=== PATIENT | male | born 1955 | race Caucasian/White ===

== ENCOUNTER 2019-08-21 12:45 | Emergency (ER) | payer MEDICARE, SELFPAY ==
[2019-08-21 12:59] VITALS: BP 124/80; PULSE 92; RESP 18; TEMP 36.4; O2SAT 94; BMI 24.3
--- NOTE | 2019-08-21 13:35 | XRR_ITS ---
PROCEDURE INFORMATION: Exam: XR Chest, 1 View Exam date and time: 08/21/2019 1:36 PM Age: 64 years old Clinical indication: Cough; Prior surgery; Surgery date: 6+ months; Surgery type: Cabg; Additional info: Dyspnea/cough TECHNIQUE: Imaging protocol: XR of the chest Views: 1 view. COMPARISON: CR Chest 2 views* [id number] 09/15/2017 1:32 PM FINDINGS: Lungs: There are patchy opacities in the mid to lower left lung field. Pleural space: Unremarkable. No pleural effusion. No pneumothorax. Heart/Mediastinum: Cardiomegaly. Bones/joints: There are post sternotomy changes. XR/XR chest 1V portable [id number] IMPRESSION: Nonspecific patchy opacities the mid to lower left lung field are nonspecific. Differential includes pneumonia and scar tissue. Underlying neoplasm cannot be excluded.
--- NOTE | 2019-08-21 13:35 | CTR_ITS ---
PROCEDURE INFORMATION: Exam: CT Abdomen And Pelvis With Contrast Exam date and time: 08/21/2019 1:44 PM Age: 64 years old Clinical indication: Abdominal pain; Localized; Right lower quadrant (rlq); Prior surgery; Surgery date: 6+ months; Surgery type: Partial nephrectomy; Patient HX: C/O rlq abd pain w n/v TECHNIQUE: Imaging protocol: Computed tomography of the abdomen and pelvis with intravenous contrast. Radiation optimization: All CT scans at this facility use at least one of these dose optimization techniques: automated exposure control; mA and/or kV adjustment per patient size (includes targeted exams where dose is matched to clinical indication); or iterative reconstruction. Contrast material: OMNI 300; Contrast volume: 95 ml; Contrast route: 20G; COMPARISON: CTA Chest w Abd/Pel w* 02/24/2017 2:53 AM RADIATION DOSE METRICS: Total DLP: 840.29 mGy-cm FINDINGS: Heart: Moderate-sized pericardial effusion. This is similar to the prior CT scan. Lungs: Streaky opacities at left lung base are most consistent with scarring and/or atelectasis. Liver: Lobulated liver consistent with cirrhosis. Multiple hepatic calcified granulomas. Gallbladder and bile ducts: Cholelithiasis. Gallbladder is distended. Pancreas: Normal. No ductal dilation. Spleen: Spleen is enlarged measuring 15.5 cm. Adrenals: Normal. No mass. Kidneys and ureters: There is a 6 mm calculus the right ureter.Mild to moderate hydronephrosis/hydroureter and associated inflammatory stranding. Right urothelium enhances prominently raising concern for ascending urinary tract infection. There are multiple cysts in the kidneys with benign features the larger of which measures 13 mm in the upper pole of the right kidney. Follow-up is not necessary. wedge-shaped cortical thinning in the inferior pole the right kidney is consistent with chronic ischemic or infectious insult. There is contour abnormality at the lateral aspect of the left kidney the with faint peripheral calcifications, consistent with scarring. This is likely related to the patient's history of prior partial nephrectomy surgery. Stomach and bowel: Unremarkable. No obstruction. No mucosal thickening. Appendix: No evidence of appendicitis. Intraperitoneal space: There is a small amount of free intraperitoneal fluid in the pelvis. Vasculature: There is ill-defined low density within the right common iliac, external iliac, and femoral veins. Lymph nodes: Unremarkable. No enlarged lymph nodes. Bladder: Unremarkable as visualized. Reproductive: Unremarkable as visualized. Bones/joints: Unremarkable. No acute fracture. Soft tissues: Unremarkable. Other findings: Moderate stool burden. CT/CT abdomen pelvis w con* [id number] IMPRESSION: 1. There is a 6 mm calculus in the distal right ureter with obstructive changes as described above. Right ureteral urothelium enhances prominently raising concern for ascending urinary tract infection. 2. Cirrhotic liver with splenomegaly. There is a small amount of free intraperitoneal fluid/ascites in the pelvis. 3. There is ill-defined low density within the right common iliac, external iliac, and femoral veins. Findings raise concern for thrombosis. Deep venous ultrasound recommended for further evaluation. COMMENTS: Consistent with the [employer]'s Incidental Findings Committee white paper (J Am Macho [employer]iol 2018): Any incidental cystic renal lesion classified in this report as too small to characterize or simple appearing is likely a benign cyst. No follow-up imaging is recommended for these lesions per consensus recommendations based on imaging criteria. Radiation Dose CTDIVOL = (mGy): DLP = 840.29 (mGy-cm)
--- NOTE | 2019-08-21 13:36 | ED_ITS ---
HPI - Abdominal Pain General: Chief Complaint: Abdominal Pain Stated Complaint: n/v abd pain Time Seen by Provider: 08/21/19 13:26 History of Present Illness: HPI narrative: 64-year-old male comes in complaining of 2 to 3 days of nausea vomiting right lower quadrant abdominal pain. Pain initially began right lower quadrant is pretty much stayed in the same place it is somewhat intermittent is not affected by urination. He has multiple episodes of vomiting per day he denies any hematochezia melena hematemesis or coffee-ground emesis. His last bowel movement was 4 days ago he said pretty much no appetite at all. He denies any association with urination denies any hematuria. He has a chronic cough that remains unchanged she denies any fever sweats or chills denies any UTI symptoms dysuria urgency or frequency no facial pain pressure difficulty with speech swallowing etc. He is not previously had an appendectomy. MD elicited complaint: abdominal pain Pertinent past history: constipation Onset (ago): day(s) (2) Pain Consistency: intermittent Location: RLQ Severity: moderate Quality: cramping Radiation: none Migration to: no migration Exacerbating factors: eating Relieving factors: vomiting and other (Not eating) Associated Symptoms: Reports anorexia, bloating, change in bowel habits (No bowel movement x4 days), constipation, GI cramping, dyspepsia, nausea, poor appetite and vomiting; Denies coffee ground emesis, diarrhea, dysuria, fever(s), hematochezia, hematuria, hematemesis, loose stools and melena Review of Systems Const: Denies: fever(s) ENMT: Denies: throat pain, ear or mastoid pain, nasal discharge or nasal congestion Card: Denies: chest pain, edema, dyspnea on exertion or orthopnea Resp: Denies: dyspnea, productive cough or non-productive cough GI: Reports: nausea, vomiting, constipation, bloating, GI cramping and change in bowel habits (No bowel movement x4 days); Denies: hematemesis, coffee ground emesis, diarrhea, hematochezia or melena : Denies: dysuria or hematuria Skin/Breast: Denies: rash or pruritus PFSH ED PFSH: Medical History (Updated 08/21/19 @ 15:12 by Jaime Saavedra DO) Coronary artery disease Diabetes mellitus Hypertension Lipidemia Renal cyst Status post surgical excision Surgical History (Updated 08/21/19 @ 13:41 by aJime Saavedra DO) History of coronary artery bypass graft S/P tonsillectomy and adenoidectomy Social History Smoking and tobacco status: never smoked Physical Exam Const: COMMON NORMALS: no acute distress GENERAL APPEARANCE: cooperative and comfortable ORIENTATION/CONSCIOUSNESS: Yes awake, Yes oriented to person, Yes oriented to place and Yes oriented to time HENMT: COMMON NORMALS: normocephalic, atraumatic, hearing grossly normal bilaterally, external ears normal, EAC's normal, TM's normal bilaterally, Normal nasal mucous membranes and turbinates present, moist oral mucous membranes and oropharynx normal HEAD & SCALP: normocephalic and atraumatic NOSE: Normal nasal mucous membranes and turbinates present EXTERNAL EAR: Yes external ears normal EXTERNAL AUDITORY CANAL: EAC's normal TYMPANIC MEMBRANE: TM's normal bilaterally Eye: COMMON NORMALS: Equal, round and reactive pupils present, EOMs intact bilaterally, conjunctivae normal and no scleral icterus CONJUNCTIVA: Yes conjunctivae normal PUPIL: Yes Equal, round and reactive pupils present Neck/C-Spine: COMMON NORMALS: full ROM, no lymphadenopathy, supple and no JVD Lymph: LYMPHATIC: no lymphadenopathy noted and no lymphedema noted Resp: COMMON NORMALS: normal respiratory effort, No retractions, No use of accessory muscles and clear to auscultation bilaterally AUSCULTATION: clear to auscultation bilaterally Cardio: COMMON NORMALS: no JVD, regular rate, regular rhythm and No murmurs present (Cardio) RATE: regular rate RHYTHM: regular rhythm GI: COMMON NORMALS: Soft to palpation and No hepatosplenomegaly present AUSCULTATION: Yes Hypoactive bowel sounds present PALPATION: Yes Soft to palpation, Yes Tenderness to palpation present (GI) Details: RLQ, No Guarding due to palpation present (GI), Yes No hepatosplenomegaly present, No Hernia present and Yes Rebound tenderness present Extremity: COMMON NORMALS: normal to inspection, capillary refill normal, no clubbing, cyanosis or edema, no calf tenderness and no pedal edema Neuro: SENSORIUM/ORIENTATION: Yes oriented to person, Yes oriented to place and Yes oriented to time Skin: COMMON NORMALS: no rashes or lesions noted GENERAL SKIN EXAM: no rashes or lesions noted Course Vital Signs: Vital signs: Vital Signs Temperature 97.5 F L 08/21/19 12:59 Pulse Rate 77 08/21/19 15:37 Respiratory Rate 17 08/21/19 15:37 Blood Pressure 164/97 08/21/19 15:37 Pulse Oximetry 94 08/21/19 15:37 MDM - Abdominal Pain MDM Narrative: Medical decision making narrative: Reviewed the findings with the patient. Will go ahead and discharge home with hydrocodone tamsulosin and Zofran. There is signs of a little bit of infection will start on Cipro have him follow-up with Dr. Suazo in the next days strain urine for stone if has worsening or change symptoms develops fever return to the emergency room Lab Data: Labs: Lab Results 08/21/19 08/21/19 08/21/19 Range/Units 13:35 13:35 13:35 WBC 5.5 (4.0-10.0) 10^3/ uL RBC 5.95 H (4.1-5.3) 10^6/u L Hgb 17.1 H (11.7-16.6) g/dL Hct 50.8 (42.0-52.0) % MCV 85.4 (80-94) fL MCH 28.7 (28.0-34.0) pg MCHC 33.7 (30.0-36.0) g/dL RDW 12.6 (12.1-15.1) % Plt Count 121 L (130-400) 10^3/c mm MPV 10.1 (7.4-10.4) fL Neut % (Auto) 68.5 % Lymph % (Auto) 22.0 % [place] % (Auto) 7.4 % Eos % (Auto) 1.5 % Baso % (Auto) 0.2 % Neut # (Auto) 3.8 (1.8-7.7) 10^3/u L Lymph # (Auto) 1.2 (0.8-4.8) 10^3/u L [place] # (Auto) 0.4 (0.2-0.9) 10^3/u L Eos # (Auto) 0.1 (0.0-0.8) 10^3/u L Baso # (Auto) 0.0 (0.0-0.1) 10^3/u L Nucleated RBC % (a uto) 0 % Nucleated RBCs # 0.0 /100WBC Sodium 133 L (136-145) mmol/L Potassium 4.2 (3.5-5.1) mmol/L Chloride 93 L (98-107) mmol/L Carbon Dioxide 24 (22-29) mmol/L Anion Gap 20.2 H (5-19) BUN 38 H (8-23) mg/dL Creatinine 1.0 (0.7-1.2) mg/dL GFR Calculation 74.8 L (90-130) mL/min Glucose 283 H (65-115) mg/dL Calculated Osmolal ity 284 L (285-295) mOsm/k g Lactate 1.8 (0.5-2.2) mmol/L Calcium 10.2 (8.5-10.5) mg/dL Total Bilirubin 1.7 H (0.15-1.2) mg/dL AST 24 (0-40) U/L ALT 30 (0-41) U/L Alkaline Phosphata se 74 (40-130) IU/L Total Protein 8.3 (6.6-8.7) g/dL Albumin 4.8 (3.5-5.2) g/dL Globulin 3.5 (1.3-4.6) g/dL Lipase 15 (13-60) U/L Urine Color (Yellow) Urine Appearance (CLEAR) Urine pH (5-7) Ur Specific Gravit y (1.005-1.030) Urine Protein (Negative) Urine Glucose (UA) (Normal) Urine Ketones (Negative) Urine Blood (Negative) Urine Nitrate (Negative) Urine Bilirubin (NEGATIVE) Urine Urobilinogen (Negative) mg/dL Ur Leukocyte Emi ase (Negative) Urine RBC (0-2) /hpf Urine WBC (0-5) /hpf Ur Squamous Epith Cells (0-5) Urine Bacteria (NONE) Urine Mucus 08/21/19 Range/Units 14:05 WBC (4.0-10.0) 10^3/ uL RBC (4.1-5.3) 10^6/u L Hgb (11.7-16.6) g/dL Hct (42.0-52.0) % MCV (80-94) fL MCH (28.0-34.0) pg MCHC (30.0-36.0) g/dL RDW (12.1-15.1) % Plt Count (130-400) 10^3/c mm MPV (7.4-10.4) fL Neut % (Auto) % Lymph % (Auto) % [place] % (Auto) % Eos % (Auto) % Baso % (Auto) % Neut # (Auto) (1.8-7.7) 10^3/u L Lymph # (Auto) (0.8-4.8) 10^3/u L [place] # (Auto) (0.2-0.9) 10^3/u L Eos # (Auto) (0.0-0.8) 10^3/u L Baso # (Auto) (0.0-0.1) 10^3/u L Nucleated RBC % (a uto) % Nucleated RBCs # /100WBC Sodium (136-145) mmol/L Potassium (3.5-5.1) mmol/L Chloride (98-107) mmol/L Carbon Dioxide (22-29) mmol/L Anion Gap (5-19) BUN (8-23) mg/dL Creatinine (0.7-1.2) mg/dL GFR Calculation (90-130) mL/min Glucose (65-115) mg/dL Calculated Osmolal ity (285-295) mOsm/k g Lactate (0.5-2.2) mmol/L Calcium (8.5-10.5) mg/dL Total Bilirubin (0.15-1.2) mg/dL AST (0-40) U/L ALT (0-41) U/L Alkaline Phosphata se (40-130) IU/L Total Protein (6.6-8.7) g/dL Albumin (3.5-5.2) g/dL Globulin (1.3-4.6) g/dL Lipase (13-60) U/L Urine Color Yellow (Yellow) Urine Appearance Sl cloudy A (CLEAR) Urine pH 5 (5-7) Ur Specific Gravit y 1.020 (1.005-1.030) Urine Protein Trace (Negative) Urine Glucose (UA) 4+ H (Normal) Urine Ketones 1+ H (Negative) Urine Blood 3+ H (Negative) Urine Nitrate Negative (Negative) Urine Bilirubin Neg (NEGATIVE) Urine Urobilinogen Norm (Negative) mg/dL Ur Leukocyte Emi ase Negative (Negative) Urine RBC 40-50 H (0-2) /hpf Urine WBC 0-4 H (0-5) /hpf Ur Squamous Epith Cells Rare (0-5) Urine Bacteria 2+ H (NONE) Urine Mucus 2+ Discharge Plan Discharge Patient Disposition: Home, Self-Care Clinical Impression: Nephrolithiasis, Cystitis Condition: Stable Prescriptions: New hydrocodone-acetaminophen 5-325 mg tablet 1 tab PO Q6H PRN (Reason: pain) Qty: 25 RF: 0 tamsulosin 0.4 mg capsule 0.4 mg PO DAILY Qty: 30 RF: 0 Zofran 4 mg tablet 4 mg PO Q6H PRN (Reason: nausea and vomiting) Qty: 20 RF: 0 Cipro 500 mg tablet 500 mg PO BID Qty: 14 RF: 0 No Action glipizide 10 mg tablet 10 mg PO BID RF: 0 omeprazole 40 mg capsule,delayed release(DR/EC) 40 mg PO QAM RF: 0 Aspir-81 81 mg Tablet,Delayed Release (Dr/Ec) 81 mg PO DAILY RF: 0 Euthyrox 25 mcg tablet 25 mcg PO QAM RF: 0 simvastatin 20 mg tablet 20 mg PO BEDTIME RF: 0 metformin 500 mg tablet extended release 24 hr 1,000 mg PO BID RF: 0 lisinopril 2.5 mg tablet 2.5 mg PO DAILY RF: 0 metoprolol tartrate 25 mg tablet 25 mg PO BID RF: 0 Gas-X See Rx Instructions .ROUTE .COMPLEX RF: 0 Kaopectate (bismuth subsalicy) See Rx Instructions .ROUTE .COMPLEX RF: 0 Tums See Rx Instructions .ROUTE .COMPLEX RF: 0 loperamide See Rx Instructions .ROUTE .COMPLEX RF: 0 insulin lispro 100 unit/mL solution See Rx Instructions .ROUTE .COMPLEX RF: 0 Discharge Orders: Discharge Order (Routine); Ordered 08/21/19 Ordered By: Jaime Saavedra Referrals: Gene Castro MD [Physician] - (Case management will call with an appointment time) Discharge Diet: Usual diet Discharge Activity: Increase activity as tolerated Activity Restrictions/Additional Instructions: Strain urine. The stone collected return for pathology. Case management will call with an appointment for Dr. Castro next week. Discharge Date/Time: 08/21/19 15:15 Coding Level of Care Code ED Steward/Stewardess Lounge for Chg Fwd Exam Comprehensive
[2019-08-21] MEDS: ondansetron 2 mg/ML SDV 2 mL 4 MG IVP (13:39)
[2019-08-21] MEDS: sodium chloride 0.9% 1,000 ML 999 ML IV (13:44)
[2019-08-21 13:57] LABS: Basophils % 0.2 %; Eosinophils # 0.1 10^3/uL (0.0-0.8); Eosinophils % 1.5 %; Hematocrit 50.8 % (42.0-52.0); Hemoglobin 17.1 g/dL (11.7-16.6); Lymphocytes # 1.2 10^3/uL (0.8-4.8); Mean Corpuscular HGB Conc 33.7 g/dL (30.0-36.0); Mean Corpuscular Hemoglobin 28.7 pg (28.0-34.0); Mean Corpuscular Volume 85.4 fL (80-94); Mean Platelet Volume 10.1 fL (7.4-10.4); Monocytes # 0.4 10^3/uL (0.2-0.9); Monocytes % 7.4 %; Neutrophils # 3.8 10^3/uL (1.8-7.7); Neutrophils % 68.5 %; Nucleated Red Blood Cells % 0 %; Platelet Count 121 10^3/cmm (130-400); Red Blood Count 5.95 10^6/uL (4.1-5.3); Red Cell Distribution Width 12.6 % (12.1-15.1); White Blood Count 5.5 10^3/uL (4.0-10.0)
[2019-08-21 14:13] LABS: Alanine Aminotransferase 30 U/L (0-41); Albumin Level 4.8 g/dL (3.5-5.2); Alkaline Phosphatase 74 IU/L (40-130); Anion Gap 20.2 (5-19); Aspartate Amino Transferase 24 U/L (0-40); Blood Urea Nitrogen 38 mg/dL (8-23); Calcium 10.2 mg/dL (8.5-10.5); Carbon Dioxide 24 mmol/L (22-29); Chloride 93 mmol/L (98-107); Globulin 3.5 g/dL (1.3-4.6); Glomerular Filtration Rate 74.8 mL/min (90-130); Glucose 283 mg/dL (65-115); Lactate (Lactic Acid level) 1.8 mmol/L (0.5-2.2); Lipase 15 U/L (13-60); Osmolality Calculated 284 mOsm/kg (285-295); Potassium 4.2 mmol/L (3.5-5.1); Sodium 133 mmol/L (136-145); Total Bilirubin 1.7 mg/dL (0.15-1.2); Total Protein 8.3 g/dL (6.6-8.7)
[2019-08-21] MEDS: iohexol 300 mg/mL 100 mL Btl IV (14:31)
[2019-08-21 14:45] LABS: Urine Color Yellow (Yellow)
[2019-08-21 14:46] LABS: Add Urine Microscopic? YES; Bilirubin Urine Neg (NEGATIVE); Blood Urine 3+ (Negative); Glucose Urine UA 4+ (Normal); Ketones Urine 1+ (Negative); Leukocyte Esterase Urine Negative (Negative); Nitrate Urine Negative (Negative); Protein Urine Trace (Negative); Urobilinogen Urine Norm (Negative); pH Urine 5 (5-7)
[2019-08-21 15:15] LABS: RBC Urine 40-50 /hpf (0-2); WBC Urine 0-4 /hpf (0-5)
[2019-08-21 15:16] LABS: Add Urine Culture? Yes; Bacteria Urine 2+; Mucus Urine 2+; Squamous Epithelial Cell Urine RARE (0-5)
[2019-08-21 15:37] VITALS: BP 164/97; PULSE 77; RESP 17; O2SAT 94
--- NOTE | 2019-08-23 12:41 | DCPLANNER ---
change manager had message to schedule a follow up appointment for patient with Dr. Castro. change manager called the office of Dr. Castro, spoke with Keila. change manager gave clinic patients information, was told that patients information would be printed and given to Lydia for review. Clinic will call patient with appointment information. Case manage will call for appointment information.
--- NOTE | 2019-08-25 13:05 | DCPLANNER ---
Patient has a follow up appointment scheduled for Friday, August 25, 2019 at 2:[address] Castro. Clinic will call patient with appointment information.
--- NOTE | 2019-09-03 13:42 | DCPLANNER ---
Patient attended appointment scheduled for 08.25.[address] Castro.
== END 2019-08-21 15:15 | disposition home or self-care (01) ==
PROVIDERS: Emergency Provider Family Medicine; PCP Family Medicine
DX: N30.90 Cystitis, unspecified without hematuria (principal); N20.0 Calculus of kidney; Z79.84 Long term (current) use of oral hypoglycemic drugs; Z79.82 Long term (current) use of aspirin; I25.10 Atherosclerotic heart disease of native coronary artery without angina pectoris; E11.9 Type 2 diabetes mellitus without complications; I10 Essential (primary) hypertension; E78.5 Hyperlipidemia, unspecified; Z95.1 Presence of aortocoronary bypass graft
CPT/HCPCS: 12345; 71045; 74177; 80053; 81001; 83605; 83690; 85025; 87086; 96361; 96374; 96375; 99282; 99284; J2405; J7030; Q9967

== ENCOUNTER 2019-08-25 12:58 | Outpatient (CLI) | payer MEDICARE, SELFPAY ==
--- NOTE | 2019-08-25 12:45 | XRR_ITS ---
PROCEDURE INFORMATION: Exam: XR Abdomen, 1 View Exam date and time: 08/25/2019 1:04 PM Age: 64 years old Clinical indication: Condition or disease; Kidney or ureter condition; Calculus (stone) in ureter TECHNIQUE: Imaging protocol: XR of the abdomen. Views: Frontal supine view of the abdomen. 1 View. COMPARISON: CT abdomen pelvis w con* [id number] 08/21/2019 2:28 PM FINDINGS: Gastrointestinal tract: There is stool throughout the colon. No bowel dilation. Intraperitoneal space: The distal right ureteral calcification seen on CT is not well seen on this exam. Organs: There are gallstones in the right upper quadrant. Bones/joints: Unremarkable. XR/XR KUB [id number] IMPRESSION: The distal right ureteral calcification seen on CT is not well seen on this exam.
== END 2019-08-25 12:59 | disposition home or self-care (01) ==
LOC: RAD 13:02
PROVIDERS: PCP Family Medicine; Visit Provider Nurse Practitioner Family
DX: N20.0 Calculus of kidney (principal)
CPT/HCPCS: 74018; 81001

== ENCOUNTER 2020-09-28 05:34 | Outpatient (CLI) | payer MEDICARE, SELFPAY ==
--- NOTE | 2020-09-28 06:04 | W.ED.GENADLT ---
HPI - General Adult History of Present Illness: HPI narrative: Patient presented to the emergency department for outpatient infusion of BAMLINIVIMAB due to Covid positive by order of Dr. Morrow. Patient does not appear to have any Covid symptoms but does have reported Covid positive test. Patient does have a heart issue as the patient describes. States he has had stents in the past. Patient denies shortness of breath. Only describes minor fatigue. Associated symptoms: Deny chest pain, dyspnea, headache(s), nausea, rash, palpitations or vomiting Review of Systems General: Reports: 10 or more systems reviewed and unremarkable except in HPI and below Const: Denies: fever(s), chills, body aches or fatigue Eyes: Denies: change in vision or blurry vision ENMT: Denies: throat pain, hoarseness or mouth pain Card: Denies: chest pain, palpitations, irregular heart rhythm, edema, swelling of feet/ankles or lightheadedness Resp: Denies: dyspnea, productive cough, non-productive cough, wheezing or pain on inspiration GI: Denies: abdominal pain, nausea or vomiting : Denies: flank pain, dysuria, urinary frequency, urinary urgency or urinary hesitancy Musc: Denies: neck pain, back pain, extremity pain, extremity swelling, joint pain, joint swelling, joint redness, joint warmth or limited range of motion Skin/Breast: Denies: rash, pruritus, erythema or skin tenderness Neuro: Denies: headache(s), numbness in extremities or weakness in extremities Psych: Denies: anxiety or depression PFS ED PFSH: Medical History Coronary artery disease Diabetes mellitus Hypertension Lipidemia Renal cyst Status post surgical excision Right ureteral calculus Surgical History H/O partial nephrectomy History of coronary artery bypass graft S/P tonsillectomy and adenoidectomy Family History Father , at age 94 Cancer prostate CAD (coronary artery disease) Mother No problems noted. Social History Smoking and tobacco status: never smoked Alcohol intake: never Marital status: Current occupational status: retired History of recent travel: No Physical Exam Const: COMMON NORMALS: no acute distress, average body habitus, patient oriented x3, no limitations, healthy appearing, alert and well nourished HENMT: COMMON NORMALS: normocephalic, atraumatic, hearing grossly normal bilaterally, external ears normal, EAC's normal, TM's normal bilaterally, Normal external nose present, Normal nasal mucous membranes and turbinates present, moist oral mucous membranes, oropharynx normal, dentition normal and gingiva normal HEAD & SCALP: normocephalic and atraumatic NOSE: Normal external nose present and Normal nasal mucous membranes and turbinates present EXTERNAL EAR: Yes external ears normal EXTERNAL AUDITORY CANAL: EAC's normal TYMPANIC MEMBRANE: TM's normal bilaterally Neck/C-Spine: COMMON NORMALS: full ROM, no lymphadenopathy, supple, no meningeal signs, no JVD, Thyroid normal and No carotid bruits THYROID: Thyroid normal Chest: COMMONS NORMALS: normal inspection of the chest, normal palpation of entire chest wall, normal inspection of the breasts and normal palpation of the breasts Breast/axilla inspection: Yes normal inspection of the breasts BREAST/AXILLA PALPATION: Yes normal palpation of the breasts Resp: COMMON NORMALS: normal respiratory effort, No retractions, No use of accessory muscles, clear to auscultation bilaterally and percussion normal AUSCULTATION: clear to auscultation bilaterally PERCUSSION: percussion normal Cardio: COMMON NORMALS: no JVD, regular rate, regular rhythm, S1 normal heart sound present, S2 normal heart sound present, No gallops present (Cardio), No clicks present (Cardio), No murmurs present (Cardio), No rub (Cardio) and Peripheral pulses 2+ throughout RATE: regular rate RHYTHM: regular rhythm HEART SOUNDS: S1 normal heart sound present and S2 normal heart sound present PERIPHERAL PULSES: Peripheral pulses 2+ throughout GI: COMMON NORMALS: Normal to inspection, nondistended, normoactive bowel sounds present, Soft to palpation, non-tender, No hepatosplenomegaly present, no masses and no bruits PALPATION: Yes Soft to palpation and Yes No hepatosplenomegaly present : COMMON NORMALS: Yes no CVA tenderness BLADDER/KIDNEY EXAM: Yes no CVA tenderness Back/Pelvis: COMMON NORMALS: no CVA tenderness, thoracic and lumbar spine normal to inspection, no thoracic nor lumbar tenderness, thoraco-lumbar ROM normal and straight leg raise negative bilaterally Extremity: COMMON NORMALS: normal to inspection, full ROM, capillary refill normal, no joint enlargement, no clubbing, cyanosis or edema, no calf tenderness and no pedal edema Neuro: COMMON NORMALS: patient oriented x3 SENSORIUM/ORIENTATION: Yes alert MENINGEAL SIGNS: Yes no meningeal signs MDM - General Adult MDM Narrative: Medical decision making narrative: BAM infusion outpatient by order of Dr. Morrow. For Covid is Covid positive patient. Patient refused received infusion to be discharged home if no significant abnormalities. Or acute immune responses Discharge Plan Discharge Patient Disposition: Home Prescriptions: No Action glipizide 10 mg tablet 10 mg PO BID RF: 0 omeprazole 40 mg capsule,delayed release(DR/EC) 40 mg PO QAM RF: 0 Aspir-81 81 mg Tablet,Delayed Release (Dr/Ec) 81 mg PO DAILY RF: 0 Euthyrox 25 mcg tablet 25 mcg PO QAM RF: 0 simvastatin 20 mg tablet 20 mg PO BEDTIME RF: 0 metformin 500 mg tablet extended release 24 hr 1,000 mg PO BID RF: 0 lisinopril 2.5 mg tablet 2.5 mg PO DAILY RF: 0 metoprolol tartrate 25 mg tablet 25 mg PO BID RF: 0 Gas-X See Rx Instructions .ROUTE .COMPLEX RF: 0 Kaopectate (bismuth subsalicy) See Rx Instructions .ROUTE .COMPLEX RF: 0 Tums See Rx Instructions .ROUTE .COMPLEX RF: 0 insulin lispro 100 unit/mL solution See Rx Instructions .ROUTE .COMPLEX RF: 0 hydrocodone-acetaminophen 5-325 mg tablet 1 tab PO Q6H PRN (Reason: pain) Qty: 25 RF: 0 tamsulosin 0.4 mg capsule 0.4 mg PO DAILY Qty: 30 RF: 0 Zofran 4 mg tablet 4 mg PO Q6H PRN (Reason: nausea and vomiting) Qty: 20 RF: 0 Cipro 500 mg tablet 500 mg PO BID Qty: 14 RF: 0 Referrals: Osei Morrow MD [Primary Care Provider] - Coding Level of Care Code ED Bowling Ball Finisher for Sandie Gill
[2020-09-28 06:23] VITALS: BP 133/85; PULSE 80; RESP 15; TEMP 36.8; O2SAT 97; BMI 23.4
[2020-09-28 08:10] VITALS: BP 129/73; PULSE 67; O2SAT 93
== END 2020-09-28 08:12 | disposition home or self-care (01) ==
PROVIDERS: PCP Family Medicine; Visit Provider Family Medicine
DX: U07.1 COVID-19 (principal); I25.10 Atherosclerotic heart disease of native coronary artery without angina pectoris; E11.9 Type 2 diabetes mellitus without complications; I10 Essential (primary) hypertension
CPT/HCPCS: 96365

== ENCOUNTER 2021-08-20 10:22 | Emergency (ER) | payer MEDICARE, SELFPAY ==
[2021-08-20 10:27] VITALS: BP 173/101; PULSE 87; RESP 18; O2SAT 96; BMI 23.0
[2021-08-20 10:32] VITALS: BP 173/101; PULSE 87; O2SAT 95
--- NOTE | 2021-08-20 10:39 | XRR_ITS ---
PROCEDURE INFORMATION: Exam: XR Left Ribs with PA Chest Exam date and time: 08/20/2021 10:57 AM Age: 66 years old Clinical indication: Pain and injury or trauma; Fall; Rib area, left side; Blunt trauma; Chest wall pain; Injury details: Fell 2 weeks ago pain to mid lateral ribs; Prior surgery; Surgery type: Heart; Patient HX: HX of kidney cancer; Additional info: Fall/rib pain TECHNIQUE: Imaging protocol: XR Left ribs with PA chest. Views: 3 views COMPARISON: CR (CHEST, ) 08/21/2019 1:39 PM FINDINGS: Lungs: Unremarkable. No consolidation. Pleural spaces: Small left chronic pleural effusion versus pleural thickening. Heart/Mediastinum: Changes of prior CABG. Bones/joints: Query acute nondisplaced left lateral 4th and 5th rib fractures. XR/XR ribs LT mn 3V w [id number] IMPRESSION: Query acute nondisplaced left lateral 4th and 5th rib fractures.
[2021-08-20 11:33] VITALS: BP 149/90; PULSE 81; O2SAT 94
[2021-08-20 11:37] VITALS: BP 149/90; PULSE 81; O2SAT 94
--- NOTE | 2021-08-20 12:17 | ED_ITS ---
HPI - Fall General: Chief Complaint: Fall Stated Complaint: Fell, Left rib pain Time Seen by Provider: 08/20/21 10:29 Source: patient Mode of arrival: ambulatory Limitations: no limitations History of Present Illness: 58-year-old male presents emergency room 2 weeks ago he fell on a sloped surface he was walking up it was slippery and the surface was wet he landed on his left side he is left rib pain since then is worse when he takes a deep breath or palpates across that area he has not had any shortness of breath denies fever sweats chills. He struck his head but did not have any loss of consciousness he has no headaches no nausea or vomiting since that episode. MD complaint: fall Onset (ago): week(s) (2) Fall from: standing Fall witnessed: no Place fall occurred: home Loss of consciousness: None Prolonged down time: no Symptoms prior to fall: none Context: tripped/slipped Location of injury: head and chest Quality: sharp Associated symptoms-after fall: Reports chest pain; Denies abdominal pain, confusion, difficulty walking, headache(s), hematuria, l ightheadedness, neck pain, numbness, short of breath, vertigo or weakness Review of Systems Const: Denies: fever(s), chills, body aches, change in appetite, fatigue or malaise ENMT: Denies: throat pain, ear or mastoid pain, nasal discharge or nasal congestion Card: Reports: chest pain; Denies: palpitations, irregular heart rhythm or lightheadedness Resp: Denies: dyspnea, productive cough or non-productive cough GI: Denies: abdominal pain, nausea or vomiting : Denies: flank pain, difficulty urinating, dysuria, urinary frequency, urinary urgency or hematuria Musc: Denies: neck pain or back pain Skin/Breast: Denies: rash or pruritus Neuro: Denies: headache(s), difficulty walking, vertigo or confusion PFSH ED PFSH: Medical History Coronary artery disease Diabetes mellitus Hypertension Lipidemia Renal cyst Status post surgical excision Right ureteral calculus Surgical History H/O partial nephrectomy History of coronary artery bypass graft S/P tonsillectomy and adenoidectomy Family History Father , at age 94 Cancer prostate CAD (coronary artery disease) Mother No problems noted. Social History Smoking and tobacco status: never smoked Alcohol intake: never Marital status: Current occupational status: retired History of recent travel: No Physical Exam Const: COMMON NORMALS: no acute distress GENERAL APPEARANCE: cooperative and comfortable ORIENTATION/CONSCIOUSNESS: Yes awake, Yes oriented to person, Yes oriented to place and Yes oriented to time HENMT: COMMON NORMALS: normocephalic, atraumatic and hearing grossly normal bilaterally HEAD & SCALP: normocephalic and atraumatic Neck/C-Spine: COMMON NORMALS: no JVD Chest: OTHER: Chest pain reproducible palpation on left anterior and midaxillary lines nearly to the level of the axilla. Resp: COMMON NORMALS: normal respiratory effort, No retractions, No use of accessory muscles and clear to auscultation bilaterally AUSCULTATION: clear to auscultation bilaterally Cardio: COMMON NORMALS: no JVD, regular rate, regular rhythm and No murmurs present (Cardio) RATE: regular rate RHYTHM: regular rhythm GI: COMMON NORMALS: Soft to palpation and No hepatosplenomegaly present A USCULTATION: Yes normoactive bowel sounds PALPATION: Yes Soft to palpation, No Tenderness to palpation present (GI), No Guarding due to palpation present (GI) and Yes No hepatosplenomegaly present : COMMON NORMALS: No no CVA tenderness BLADDER/KIDNEY EXAM: No no CVA tenderness Back/Pelvis: COMMON NORMALS: negative for no CVA tenderness Extremity: COMMON NORMALS: normal to inspection, capillary refill normal, no clubbing, cyanosis or edema, no calf tenderness and no pedal edema Neuro: SENSORIUM/ORIENTATION: Yes oriented to person, Yes oriented to place and Yes oriented to time Skin: COMMON NORMALS: no rashes or lesions noted GENERAL SKIN EXAM: no rashes or lesions noted Course Vital Signs: Vital signs: Vital Signs Pulse Rate 81 08/20/21 11:37 Respiratory Rate 18 08/20/21 10:27 Blood Pressure 149/90 08/20/21 11:37 Pulse Oximetry 94 08/20/21 11:37 MDM - Fall Medical Decision Making Left fourth fifth rib fractures no pneumothorax treat with pain medications follow-up with primary care. Return if has further problems. Medical Records I reviewed the patient's medical records. Lab Data I reviewed the patient's lab results. Radiology Impressions Ribs X-Ray 08/20/21 10:39 IMPRESSION: Query acute nondisplaced left lateral 4th and 5th rib fractures. Discharge Plan Discharge Patient Disposition: Home Clinical Impression: Closed rib fracture Condition: Stable Prescriptions: New hydrocodone-acetaminophen 5-325 mg tablet 1 tab PO Q6H PRN (Reason: pain) Qty: 25 0RF No Action glipizide 10 mg tablet 10 mg PO BID 0RF omeprazole 40 mg capsule,delayed release(DR/EC) 40 mg PO QAM 0RF Aspir-81 81 mg Tablet,Delayed Release (Dr/Ec) 81 mg PO DAILY 0RF Euthyrox 25 mcg tablet 25 mcg PO QAM 0RF simvastatin 20 mg tablet 20 mg PO BEDTIME 0RF metformin 500 mg tablet extended release 24 hr 1,000 mg PO BID 0RF lisinopril 2.5 mg tablet 2.5 mg PO DAILY 0RF metoprolol tartrate 25 mg tablet 25 mg PO BID 0RF Gas-X See Rx Instructions .ROUTE .COMPLEX 0RF Rx Instructions: prn Kaopectate (bismuth subsalicy) See Rx Instructions .ROUTE .COMPLEX 0RF Rx Instructions: prn Tums See Rx Instructions .ROUTE .COMPLEX 0RF Rx Instructions: prn insulin lispro 100 unit/mL solution See Rx Instructions .ROUTE .COMPLEX 0RF Rx Instructions: rx last filled on 03/28/19 at [facility] for 5 units with meals- pt states he takes on a sliding scale hydrocodone-acetaminophen 5-325 mg tablet 1 tab PO Q6H PRN (Reason: pain) Qty: 25 0RF tamsulosin 0.4 mg capsule 0.4 mg PO DAILY Qty: 30 0RF Zofran 4 mg tablet 4 mg PO Q6H PRN (Reason: nausea and vomiting) Qty: 20 0RF Cipro 500 mg tablet 500 mg PO BID Qty: 14 0RF Discharge Orders: Discharge ED (Routine); Ordered 08/20/21 Ordered By: Jaime Saavedra Referrals: Osei Morrow MD [Primary Care Provider] - Discharge Diet: Usual diet Discharge Activity: Increase activity as tolerated Patient Instructions: Opioid Safety Activity Restrictions/Additional Instructions: Follow-up as needed Coding Level of Care Code ED [employer] Operator for Sandie Gill
== END 2021-08-20 11:39 | disposition home or self-care (01) ==
PROVIDERS: Emergency Provider Family Medicine; PCP Family Medicine
DX: S22.42XA Multiple fractures of ribs, left side, initial encounter for closed fracture (principal); W01.0XXA Fall on same level from slipping, tripping and stumbling without subsequent striking against object, initial encounter
CPT/HCPCS: 71101; 99283

== ENCOUNTER → 2022-02-18 10:30 | Outpatient (BNVA) | payer MEDICARE, SELFPAY | PROVIDERS: PCP Family Medicine; Visit Provider Nurse Practitioner Family | DX: E78.5 Hyperlipidemia, unspecified (principal); E11.9 Type 2 diabetes mellitus without complications | CPT/HCPCS: 80053; 80061; 83036; 84443; 85025 ==

== ENCOUNTER → 2022-05-09 09:53 | Outpatient (BNVA) | payer MEDICARE, SELFPAY | PROVIDERS: PCP Family Medicine; Visit Provider Nurse Practitioner Family | DX: E11.9 Type 2 diabetes mellitus without complications (principal); I10 Essential (primary) hypertension; J44.9 Chronic obstructive pulmonary disease, unspecified; Z12.5 Encounter for screening for malignant neoplasm of prostate; E03.9 Hypothyroidism, unspecified; R35.1 Nocturia; I25.10 Atherosclerotic heart disease of native coronary artery without angina pectoris; Z12.11 Encounter for screening for malignant neoplasm of colon | CPT/HCPCS: 80053; 80061; 83036; 84443; 85025; G0103 ==

== ENCOUNTER → 2022-07-23 11:44 | Outpatient (BNVA) | payer MEDICARE, SELFPAY | PROVIDERS: PCP Family Medicine; Visit Provider Nurse Practitioner Family | DX: E11.9 Type 2 diabetes mellitus without complications (principal) | CPT/HCPCS: 80053; 80061; 83036; 84443; 85025 ==

== ENCOUNTER → 2022-10-15 10:24 | Outpatient (BNVA) | payer MEDICARE, SELFPAY | PROVIDERS: PCP Family Medicine; Visit Provider Nurse Practitioner Family | DX: E11.9 Type 2 diabetes mellitus without complications (principal) | CPT/HCPCS: 80053; 80061; 83036; 84443; 85025 ==

== ENCOUNTER → 2023-01-13 09:15 | Outpatient (BNVA) | payer MEDICARE, SELFPAY | PROVIDERS: PCP Family Medicine; Visit Provider Nurse Practitioner Family | DX: E11.9 Type 2 diabetes mellitus without complications (principal); R25.1 Tremor, unspecified; R41.3 Other amnesia; E03.9 Hypothyroidism, unspecified; I10 Essential (primary) hypertension | CPT/HCPCS: 80053; 80061; 83036; 84443; 85025 ==

== ENCOUNTER → 2023-03-27 07:00 | Outpatient (BNVA) | payer MEDICARE, SELFPAY | PROVIDERS: PCP Family Medicine; Visit Provider Psychiatry & Neurology Neurology | DX: R25.1 Tremor, unspecified (principal); R29.818 Other symptoms and signs involving the nervous system | CPT/HCPCS: 99203 ==

== ENCOUNTER 2023-05-01 10:17 | Outpatient (CLI) | payer MEDICARE, SELFPAY ==
--- NOTE | 2023-05-01 16:45 | MR_ITS ---
WS: [id number] MRI BRAIN WITHOUT CONTRAST HISTORY: R25.1 - Tremor, unspecified COMPARISON: None available. TECHNIQUE: Diffusion imaging, multiplanar T1, T2 and FLAIR imaging obtained. No evidence for acute infarct or hemorrhage. Rutherford-white matter differentiation is normal. Mild diffuse global volume loss. Mild small vessel ischemic changes in the periventricular white carline er. Small lacunar infarct adjacent to the anterior LEFT lateral ventricle. No acute infarct. Mild hip pocampal atrophy, slightly greater on the LEFT than the RIGHT. Ventricles and extra-axial spaces are normal. No inferior displacement of cerebellar tonsils. The sella turcica and pituitary gland are unremarkabl e. Dural venous sinuses and [place] demonstrate no abnormality on this unenhanced studies. Paranasal sinuses: No air-fluid levels. Mild mucoperiosteal thickening in the ethmoid air cells. Mastoid air cells: Normal. Calvarium and scalp: Intact. IMPRESSION: 1. No acute infarct or diffusion abnormality. 2. Mild diffuse global volume loss and mild hippocampal atrophy. 3. Mild small vessel ischemic disease with a remote lacunar infarct adjacent to the LEFT lateral james tricle.
== END 2023-05-01 10:18 | disposition home or self-care (01) ==
PROVIDERS: PCP Family Medicine; Visit Provider Psychiatry & Neurology Neurology
DX: R25.1 Tremor, unspecified (principal); R26.89 Other abnormalities of gait and mobility; I67.89 Other cerebrovascular disease; Z86.73 Personal history of transient ischemic attack (TIA), and cerebral infarction without residual deficits; G31.9 Degenerative disease of nervous system, unspecified
CPT/HCPCS: 70551

== ENCOUNTER 2023-05-07 13:15 | Outpatient (CLI) | payer MEDICARE, SELFPAY ==
--- NOTE | 2023-05-07 13:20 | USCV_ITS ---
Steve Moya Age: 67 Gender: M : 1955 Exam Date: 05/07/2023 13:45 Ordering Phys: Nils Cruz MD Technologist: ADDIE [place] [facility] [place]: Abnormal Gait Risk Factors: Previous Vascular Surgery: Right Brachial BP: / Left Brachial BP: / Right Left Velocity (cm/s) Spectral Plaque Velocity (cm/s) Spectral Plaque Syst/Diast Broadening Syst/Diast Broadening 47.60/ 10.30 Prox CCA 58.40 / 12.10 60.10/ 13.90 Mid CCA 67.30 / 15.40 63.00/ 13.20 Distal CCA 54.70 / 16.20 29.00/ 10.10 Prox ICA 33.50 / 16.40 42.90/ 16.40 Mid ICA 52.80 / 19.30 63.10/ 20.80 Distal ICA 65.60 / 18.50 82.30 ECA 94.10 1.00 ICA/CCA 0.98 Antegrade Vertebral Antegrade 39.60/ 9.30 cm/s 41.20/ 15.50 cm/s Tri Subclavian Tri 169.3 123.5 0 0 FINDINGS Comparison: none available. No significant elevation of systolic or diastolic velocities. Waveforms are normal. Mild bilateral scattered calcified plaque and intimal thickening throughout the common carotid arteries and extending through the bifurcation. CONCLUSIONS Bilateral ICA stenosis less than 50%. Dr. Faith Crooks DO (Electronically Signed) Final Date: 07 May 2023 15:06 S
== END 2023-05-07 13:16 | disposition home or self-care (01) ==
LOC: RAD 13:16
PROVIDERS: PCP Family Medicine; Visit Provider Psychiatry & Neurology Neurology
DX: R26.89 Other abnormalities of gait and mobility (principal); R25.1 Tremor, unspecified; I65.23 Occlusion and stenosis of bilateral carotid arteries
CPT/HCPCS: 93880

== ENCOUNTER 2023-05-08 09:22 | Outpatient (CLI) | payer MEDICARE, SELFPAY ==
[2023-05-08 10:39] LABS: Folate Level 15.6 ng/mL (4.5-32.2)
[2023-05-08 10:40] LABS: Vitamin B12 632 pg/mL (232-1245)
[2023-05-09 14:26] LABS: RPR w(Moniotor) w/REFL Titer NON-REACTIVE (NON-REACTIVE)
[2023-05-12 03:00] LABS: Methylmalonic Acid 118 nmol/L (87-318)
[2023-05-13 22:10] LABS: Treponema pallidum Ab NON-REACTIVE
== END 2023-05-08 09:23 | disposition home or self-care (01) ==
LOC: LAB 09:22
PROVIDERS: PCP Family Medicine; Visit Provider Psychiatry & Neurology Neurology
DX: G25.0 Essential tremor (principal); R29.818 Other symptoms and signs involving the nervous system
CPT/HCPCS: 36415; 82607; 82746; 83921; 86592; 86780

== ENCOUNTER 2023-07-09 11:28 | Outpatient (CLI) | payer BC, SELFPAY ==
--- NOTE | 2023-07-09 11:36 | XR_ITS ---
WS: [id number] Examination: XR lumbar spine 2-3V* [id number] Reason for Exam: Lumbar back pain Date: July 09, 2023 Comparison: None. Findings: The pedicles are intact. The bone density is diminished. There is no anterior wedging or compression. There is no subluxation Spondylosis is identified. There is prominent facet arthropathy particularly at L4-5 and L5-S1. There is cholelithiasis. Impression: There is no wedging or compression. There is no subluxation Degenerative changes are present.
--- NOTE | 2023-07-09 11:36 | XR_ITS ---
WS: [id number] Examination: XR thoracic spine 3V* [id number] Reason for Exam: Thoracic back pain Date: July 09, 2023 Comparison: None. Findings: The bone density is diminished. Sternal wires obscure portions of the pedicles but the pedicles visua lized appear maintained. There is no anterior wedging or compression. There is no subluxation Mild hypertrophic changes are present. There is curvature with bowing to the right. Impression: Mild hypertrophic changes are present without compression or subluxation.
--- NOTE | 2023-07-09 11:36 | XR_ITS ---
WS: [id number] Examination: XR cervical spine 3V* [id number] Reason for Exam: Cervical radiculopathy Date: July 09, 2023 Comparison: None. Findings: The CARIE and the C1-2 relationship are intact. There is no prevertebral swelling There is no wedging or compression There is subtle anterolisthesis at C4-5 and retrolisthesis at C6-7 Dominant degenerative changes are noted with disc space narrowing at C5-6 and C6-7. There are anterio r and posterior osteophytes present Bilateral calcification in the neck is noted. I suspect this is carotid artery in etiology. Impression: Dominant C5-6 and C6-7 degenerative changes are present without compression Probable carotid calcification is identified. I recommend carotid duplex imaging for further evaluati on.
== END 2023-07-09 11:29 | disposition home or self-care (01) ==
PROVIDERS: PCP Family Medicine; Visit Provider Family Medicine
DX: M54.12 Radiculopathy, cervical region (principal); M54.16 Radiculopathy, lumbar region; M54.14 Radiculopathy, thoracic region; M47.812 Spondylosis without myelopathy or radiculopathy, cervical region
CPT/HCPCS: 72040; 72072; 72100

== ENCOUNTER → 2023-08-19 13:02 | Outpatient (BNVA) | payer BC, SELFPAY | PROVIDERS: PCP Family Medicine; Visit Provider Internal Medicine | DX: E11.9 Type 2 diabetes mellitus without complications (principal); E03.9 Hypothyroidism, unspecified | CPT/HCPCS: 36415; 80053; 80061; 82044; 83036; 84439; 84443 ==

== ENCOUNTER → 2023-11-13 12:25 | Outpatient (BNVA) | payer BC, SELFPAY | PROVIDERS: PCP Family Medicine; Visit Provider Internal Medicine | DX: E11.9 Type 2 diabetes mellitus without complications (principal); E03.9 Hypothyroidism, unspecified | CPT/HCPCS: 36415; 80053; 80061; 82044; 83036; 84439; 84443 ==